=== PATIENT | male | born 1960 | race Caucasian/White ===

== ENCOUNTER 2017-10-06 07:13 | Day surgery (SDC) | payer BC, SELFPAY ==
[2017-10-06] MEDS ORDERED: Lidocaine 2% 5 ML SDV ONE (07:17)
[2017-10-06] MEDS ORDERED: Propofol 200 MG/20 ML SDV ONE (07:17)
[2017-10-06] MEDS ORDERED: Ondansetron 4 MG/2 ML SDV ONE (07:17)
[2017-10-06] MEDS ORDERED: Rocuronium 10 MG/ML 10 ML Syringe ONE (07:17)
[2017-10-06] MEDS ORDERED: Midazolam 1 MG/ML 2 ML SDV ONE (07:17)
[2017-10-06] MEDS ORDERED: fentaNYL 250 MCG/5 ML SDV ONE (07:17)
[2017-10-06] MEDS ORDERED: Oxymetazoline 0.05% Nasal Spray 15 ML Bottle ONE (07:24)
[2017-10-06] MEDS ORDERED: Bupivacaine 25%/EPINEPHrine/PF 30 ML ONE (07:24)
--- NOTE | 2017-10-06 07:41 | PCM.PREANE ---
Preanesthetic Assessment - Anesthesia/Transfusion/Family Hx Anesthesia History: No Prior Anesthesia Family History of Anesthesia Reaction: No Transfusion History: No Prior Transfusion(s) Intubation History: Unknown - Review of Systems General: No Symptoms Pulmonary: No Symptoms Cardiovascular: No Symptoms Gastrointestinal: No Symptoms Neurological: No Symptoms Other: Reports: None - Physical Assessment Height: 1.8 m Weight: 81.193 kg ASA Class: 2 Mental Status: Alert & Oriented x3 Airway Class: Mallampati = 3 Dentition: Reports: Normal Dentition Thyro-Mental Finger Breadths: 3 Mouth Opening Finger Breadths: 3 ROM/Head Extension: Full Lungs: Clear to Auscultation, Normal Respiratory Effort Cardiovascular: Regular Rate, Regular Rhythm - Allergies Allergies/Adverse Reactions: Allergies Allergy/AdvReac Type Severity Reaction Status Date / Time No Known Allergies Allergy Verified 10/01/17 10:52 - Anesthesia Plan Pre-Op Medication Ordered: None - Acknowledgements Anesthesia Type Planned: General Anesthesia Pt an Appropriate Candidate for the Planned Anesthesia: Yes Alternatives and Risks of Anesthesia Discussed w Pt/Guardian: Yes Pt/Guardian Understands and Agrees with Anesthesia Plan: Yes PreAnesthesia Questionnaire HEENT History: Reports: Other (See Below) Other HEENT History: wears glasses/contacts Cardiovascular History: Reports: High Cholesterol Respiratory History: Reports: Sleep Apnea Other Respiratory History: does not use CPAP Genitourinary History: Reports: None Psychiatric History: Reports: Anxiety, Depression - Past Surgical History Head Surgeries/Procedures: Reports: None Male Surgical History: Reports: Vasectomy - SUBSTANCE USE Smoking Status *Q: Former Smoker Tobacco Use Within Last Twelve Months: Other (See Below) Recreational Drug Use History: No - HOME MEDS Home Medications: Home Meds Escitalopram Oxalate 30 mg PO DAILY 10/01/17 [History] Sildenafil Citrate [Sildenafil] 2 - 4 tab PO ASDIRECTED PRN 10/01/17 [History] atorvaSTATin Calcium [Atorvastatin Calcium] 20 mg PO DAILY 10/01/17 [History] - CURRENT (IN HOUSE) MEDS Current Meds: Current Medications Hydrocodone Bitart/Acetaminophen ([place]obson 325-5 Mg) 1 tab PO Q4H PRN PRN Reason: Pain Bupivacaine HCl/Epinephrine Bitart (Marcaine 0.25%/Epinephrine 1:200,000) 10 ml INJECT ONETIME ONE Stop: 10/06/17 08:01 Cocaine HCl (Cocaine Hcl) 4 ml TOP ONETIME ONE Stop: 10/06/17 08:01 Clindamycin Phosphate 600 mg/ (Premix) 50 mls @ 150 mls/hr IV ONETIME ONE Stop: 10/06/17 08:19 Lactated Ringer's (Ringers, Lactated) 1,000 mls @ 500 mls/hr IV .BOLUS CELENA Oxymetazoline HCl (Afrin Original 0.05% Nasal [place]) 1 ml PRISCILLA ONETIME ONE Stop: 10/06/17 08:01 Discontinued Medications Fentanyl (Sublimaze) Confirm Administered Dose 250 mcg .ROUTE .STK-MED ONE Stop: 10/06/17 07:18 Bupivacaine HCl/Epinephrine Bitart (Sensorc Mpf 0.25%-Epi [id number]) Confirm Administered Dose 30 mls @ as directed .ROUTE .STK-MED ONE Stop: 10/06/17 07:25 Lidocaine (Xylocaine-Mpf 2%) Confirm Administered Dose 5 ml .ROUTE .STK-MED ONE Stop: 10/06/17 07:18 Midazolam HCl (Versed 1 Mg/Ml) Confirm Administered Dose 2 mg .ROUTE .STK-MED ONE Stop: 10/06/17 07:18 Ondansetron HCl (Zofran) Confirm Administered Dose 4 mg .ROUTE .STK-MED ONE Stop: 10/06/17 07:18 Oxymetazoline HCl (Afrin Original 0.05% Nasal [place]) Confirm Administered Dose 15 ml .ROUTE .STK-MED ONE Stop: 10/06/17 07:25 Propofol (Diprivan 20 Ml) Confirm Administered Dose 200 mg .ROUTE .STK-MED ONE Stop: 10/06/17 07:18 Rocuronium [place] (Zemuron) Confirm Administered Dose 100 mg .ROUTE .STK-MED ONE Stop: 10/06/17 07:18
[2017-10-06] MEDS ORDERED: Lactated Ringers 1,000 ML IV SCH (08:00)
[2017-10-06] MEDS ORDERED: Acetaminophen/HYDROcodone 325-5 MG Tab PO PRN (08:00)
[2017-10-06] MEDS ORDERED: Clindamycin Phosphate in D5W 600 MG in Premix Bag 1 BAG IV ONE ×2 (08:00)
[2017-10-06] MEDS ORDERED: Bupivacaine 0.25%/EPINEPHrine 1:200,000 10 ML SDV INJECT ONE (08:00)
[2017-10-06] MEDS ORDERED: Oxymetazoline 0.05% Nasal Spray 15 ML Bottle NAS ONE (08:00)
[2017-10-06] MEDS ORDERED: Dexamethasone 4 MG/ML 5 ML MDV ONE (09:04)
[2017-10-06] MEDS ORDERED: Phenylephrine/Normal Saline 100 MCG/ML 10 ML Syringe ONE (09:05)
[2017-10-06] MEDS ORDERED: ePHEDrine 50 MG/ML SDV ONE (09:25)
[2017-10-06] MEDS ORDERED: fentaNYL 100 MCG/2 ML SDV IVPUSH PRN (10:10)
--- NOTE | 2017-10-06 12:34 | PCM.POSTAN ---
POST ANESTHESIA ASSESSMENT - MENTAL STATUS Mental Status: Alert, Oriented - RESPIRATORY Respiratory Status: Respiratory Rate WNL, Airway Patent, O2 Saturation Stable, Supplemental Oxygen - CARDIOVASCULAR CV Status: Pulse Rate WNL, Blood Pressure Stable - GASTROINTESTINAL GI Status: No Symptoms - PAIN Pain Score: 0 - POST OP HYDRATION Hydration Status: Adequate & Stable - OBSERVATIONS Free Text/Narrative:: Pt awake and stable and states he's doing well.
--- NOTE | 2017-10-07 16:56 | PCM.OPNOTE ---
- General Post-Op/Procedure Note Date of Surgery/Procedure: 10/06/17 Operative Procedure(s): bilateral rhinoplasty with septoplasty and turbinate infracture Pre Op Diagnosis: septal deviation and nasal obstruction, cosmetic Post-Op Diagnosis: Same Anesthesia Technique: General ET Tube, Local Primary Surgeon: Carmen Machado Quality Control Tech: Kasie Diaz Complications: None Condition: Good
--- NOTE | 2017-10-07 23:07 | OR ---
SURGEON: LALO RAMOS MD DATE OF PROCEDURE: 10/06/2017 PROCEDURE: Bilateral rhinoplasty with septoplasty and turbinate infracture. PREOPERATIVE DIAGNOSES: Septal deviation and nasal obstruction as well as cosmetic for the remainder of the rhinoplasty. ANESTHESIA: General ET tube and local. RETAIL REPRESENTATIVE: MELISSA Almaguer INDICATIONS: Mr. Crawford is a 56-year-old gentleman seen today for bilateral septorhinoplasty and turbinate infracture. He initially presented for his septal deviation, nasal obstruction, but would also like the dorsal hump addressed on the top of his nose. Risks and benefits of this were discussed with him, and he was in agreement to proceed. We did obtain insurance prior authorization for the septoplasty and will proceed with the remainder of the rhinoplasty as cosmetic. Risks were including, but not limited to, bleeding, infection, damage to underlying or overlying structures, possible need for future interventions, and possible scarring. He does have significant history of trauma to the nose, and this makes the outcome somewhat more unpredictable. He would like to proceed. PROCEDURE IN DETAIL: After informed consent was obtained and placed on the chart, the patient was brought to the operating theater in supine position. After adequate general anesthesia was obtained, the area was prepped and draped and time-out was completed to confirm side and site. 4 mL of 4% cocaine were placed on pledgets and placed intranasally and then taken Afrin prior to coming back to the operating room. Once adequately anesthetized here, attention was then paid to local injection and then infraorbital and supraorbital nerve blocks. Once this was completed and the cocaine had been allowed to sit for an appropriate time, pledgets were removed and an open rhinoplasty was undertaken using a V incision at the base of the nose, and the transcartilaginous incision through the intranasal component. All structures were analyzed and freed, and attention was first paid to separation of the upper lateral cartilages from the septum. The nasal bone was adequately exposed. First, the nasal bone was rasped using a size 4 and size 5 dorsal nasal rasp. This was done until appropriate contour was appreciated without open roof deformity. After this, it was noted that the septum portion of the nose was prominent and this was trimmed appropriately. Once adequately trimmed and then appropriate dorsal nasal contour was appreciated, attention was then paid to isolation of the septum. The upper lateral cartilages were from the septum at the dorsum of the nose, and dissection was carried down to free the mucoperichondrium off the cartilage itself. An L-shaped strut was designed slightly over 1 cm thick and a septal knife was used to remove the posterior and most deviated portion of the septum. This was saved for pmo consultant grafts. Once this was removed, meticulous hemostasis was obtained, and the mucoperichondrium was reapproximated. Attention was then paid to pmo consultant grafts, and these were isolated from the removed septum on the smoothest section. These were designed in place between the upper lateral cartilage bordering underneath the nasal bones and extending distally in order to provide appropriate spreading between the septum and upper lateral cartilages. These were secured in place using 4-0 Monocryl sutures. Once adequately secured, attention was then paid to the tip work. The right nasal alar cartilage was appreciated to be quite flimsy compared to the left. An additional cartilage graft was placed here for strength. Several transdomal sutures were placed to allow appropriate projection and structure to the nose after dissection. At the end of the case, butter knife was passed into the nasal passages, and it was appreciated the inferior turbinates were quite large and these were outfractured without difficulty. The patient tolerated this well, and all counts and needles were correct at the end of the case. Once this was completed, meticulous hemostasis was obtained, the area was copiously irrigated, and dorsal nasal splint and intranasal splints were placed. A drip pad was placed underneath the nose after it was closed using 6-0 Prolene sutures on the outside and 5-0 chromic stitches for the intranasal component. The patient tolerated this well, and all counts and needles were correct at the end of the case. FOLLOWUP INSTRUCTIONS: The patient will see us in approximately 5 days, sooner if any problems, questions, or concerns. HEGGTHE / MODL /[id number] VINH
== END 2017-10-06 14:15 | disposition home or self-care (01) ==
LOC: MW.SDS 07:13
PROVIDERS: ATTEND Plastic Surgery
DX: J34.2 Deviated nasal septum (principal); J34.89 Other specified disorders of nose and nasal sinuses; F32.9 Major depressive disorder, single episode, unspecified; E78.00 Pure hypercholesterolemia, unspecified; Z79.899 Other long term (current) drug therapy; Z87.891 Personal history of nicotine dependence
CPT/HCPCS: 30420; A9270; J1100; J2250; J2405; J3010; J7120; 00160; J2704